=== PATIENT | male | born 1995 | race Caucasian/White ===

== ENCOUNTER 2018-05-01 07:34 | Emergency (ER) | payer OTHER ==
[2018-05-01] MEDS ORDERED: IBUPROFEN 600 MG TAB PO (08:04)
[2018-05-01] MEDS: IBUPROFEN 200 MG TAB PO (08:14)
[2018-05-01] MEDS: DIAZEPAM 5 MG TAB PO (08:14)
== END 2018-05-01 08:43 | disposition home or self-care (01) ==
LOC: FTE 07:34
DX: M54.6 Pain in thoracic spine (principal); J45.909 Unspecified asthma, uncomplicated
CPT/HCPCS: 99283; Z7502

== ENCOUNTER 2018-09-15 14:39 | Emergency (ER) | payer SELFPAY, OTHER | END 2018-09-15 18:35 | disposition left against medical advice (07) | LOC: FTE 14:39 | DX: Z53.21 Procedure and treatment not carried out due to patient leaving prior to being seen by health care provider (principal) | CPT/HCPCS: 93005 ==

== ENCOUNTER 2018-10-21 13:23 | Emergency (ER) | payer OTHER | END 2018-10-21 16:30 | disposition home or self-care (01) | LOC: FTE 13:23 | DX: M94.0 Chondrocostal junction syndrome [Tietze] (principal); J45.909 Unspecified asthma, uncomplicated | CPT/HCPCS: 71045; 71100; 76705; 99284-25 ==

== ENCOUNTER 2018-12-19 16:12 | Emergency (ER) | payer OTHER | END 2018-12-19 17:20 | disposition home or self-care (01) | LOC: FTE 16:12 | DX: M94.0 Chondrocostal junction syndrome [Tietze] (principal); J45.909 Unspecified asthma, uncomplicated | CPT/HCPCS: 99282; Z7502 ==